=== PATIENT | female | born 1960 | race African-American/Black ===

== ENCOUNTER 2019-12-03 06:34 | Day surgery (SDC) | payer BC ==
[2019-12-02 12:01] VITALS: BMI 23.7
[2019-12-03] MEDS ORDERED: LIDOCAINE HCL/PF 2% SDV 5ML VIAL ONE (07:05)
[2019-12-03] MEDS ORDERED: SODIUM CHLORIDE 0.9% P/F 10 ML VIAL IJ ONE (07:05)
[2019-12-03] MEDS ORDERED: ceFAZolin SODIUM 1 GM VIAL ONE (07:05)
[2019-12-03] MEDS ORDERED: PROPOFOL 20 ML ONE ×2 (07:05)
[2019-12-03] MEDS ORDERED: MIDAZOLAM HCL 2 MG/2 ML SINGLE DOSE VIAL ONE ×4 (07:05→07:33)
[2019-12-03] MEDS ORDERED: DEXAMETHASONE SOD PHOSPHATE 4 MG/1 ML VIAL ONE (07:05)
[2019-12-03] MEDS ORDERED: KETOROLAC TROMETHAMINE 30 MG/1 ML VIAL ONE (07:05)
[2019-12-03] MEDS ORDERED: DESFLURANE GAS 240 ML BOTTLE IH ONE (07:11)
[2019-12-03] MEDS ORDERED: ROPIVACAINE HCL 0.5% 30ML VIAL ONE (07:31)
[2019-12-03] MEDS ORDERED: ACETAMINOPHEN 1000 MG/100 ML VIAL (NON FORMULARY) IVPB ONE (07:45)
[2019-12-03] MEDS ORDERED: ONDANSETRON 4 MG/2 ML VIAL IVPUSH PRN (07:45)
[2019-12-03] MEDS ORDERED: oxyCODONE HCL 5 MG TABLET PO PRN ×2 (07:45)
[2019-12-03] MEDS ORDERED: LACTATED RINGERS SOLUTION 1,000 ML IV SCH (07:45)
--- NOTE | 2019-12-03 07:48 | HP ---
Satellite [facility] - Chief Complaint Chief Complaint: left elbow pain - Past Medical History Allergies/Adverse Reactions: Allergies Allergy/AdvReac Type Severity Reaction Status Date / Time No Known Drug Allergies Allergy Verified 12/02/19 12:08 - Current Medications Current Medications: Home Medications Medication Instructions Recorded Loratadine [Claritin] 10 mg PO DAILY 12/02/19 Satellite Physical Exam - Physical Examination Vital Signs: Vital Signs Period Temp Pulse Resp BP Sys/Fox Pulse Ox Last 24 Hr 97.9 F 74 16 100/70 99-99 General Appearance: Well Nourished, Well Developed, Alert & Oriented x3 ENT: Clear Lung: Normal air movement Extremities: Other (left elbow- + ttp lat epi, incr pain with wrist ext, nvi) Neurological: Intact, Alert, Oriented Satellite Impression/Plan - Impression/Plan Impression: left elbow lateral epicondylitis, ecrb tear Operative Procedure: left elbow lat epicondylectomy, ECRB repair Date to be Performed: 12/03/19
[2019-12-03] MEDS ORDERED: ceFAZolin 2 GRAM PREMIX BAG IVPB ONE (08:12)
--- NOTE | 2019-12-03 09:24 | OP ---
Operative Note - Note: Operative Date: 12/03/19 Pre-Operative Diagnosis: left elbow lateral epicondylitis Operation: left elbow lateral epicondylectomy, repair of ECBR tendon Post-Operative Diagnosis: Same as Pre-op Surgeon: Saroj Chang Anesthesiologist/WEDDING DESIGNER: Fatna Romero Anesthesia: General, Local Specimens Removed: lateral epicondyle inflammatory tissue Estimated Blood Loss (mls): 0 Drains, Volume Out (mls): 0 Blood Volume Replaced (mls): 0 Fluid Volume Replaced (mls): 700 Operative Report Dictated: Yes
[2019-12-03 10:46] VITALS: BP 113/85; PULSE 66; TEMP 96
--- NOTE | 2019-12-03 17:16 | SPEC ---
DATE OF OPERATION: 12/03/2019 PREOPERATIVE DIAGNOSIS: Recurrent severe left elbow lateral epicondylitis. POSTOPERATIVE DIAGNOSIS: Recurrent severe left elbow lateral epicondylitis. PROCEDURE: Left elbow lateral epicondylectomy and repair of extensor carpi radialis brevis tendon. SURGEON: Pilar Kincaid MD SOFTWARE LICENSING EXECUTIVE: None. ANESTHESIOLOGIST: Fanta Romero MD ANESTHESIA: Left interscalene block with LMA anesthesia. DRAINS: None. COMPLICATIONS: None. SPECIMEN: Inflammatory tissue, left elbow lateral epicondyle. BLOOD LOSS: None. BLOOD GIVEN: None. FLUID REPLACEMENT: 700 mL Plasmalyte. INDICATION: This patient is a 59-year-old female with a preoperative diagnosis of recurrent severe left elbow epicondylitis. PROCEDURE: The patient was brought into the operating room, peripheral IV placed, IV sedation given, a right intrascalene block performed, LMA anesthesia induced. Patient was given 1 gram of IV Ancef. A tourniquet applied to the arm. The upper extremity was prepped and draped in a sterile fashion, elevated and exsanguinated with an Esmarch bandage and tourniquet inflated to 250 mg of mercury. The entire case was done under 3.8 loupe magnification. A No. 15 scalpel blade was utilized to cut into the skin in a curvilinear fashion over the lateral epicondyle. Subcutaneous hemostasis was achieved with the bipolar cautery. Metzenbaum scissors were used to cut through the superficial fascia, exposing the lateral epicondyle, the origin of the ECRB. Under direct visualization three longitudinal slits were made within the periosteum of the lateral epicondyle as well as along the fibers of the ECRB with a No. 15 scalpel blade. First starting in the most anterior slit, using a combination of a fresh No. 15 scalpel blade and a rongeur, I was able to identify and removed chronic inflammatory degenerating tissue. This slightly grayish yellowish tissue was passed off the field with specimen, soft tissue lateral epicondyle right elbow. Next a curet was used to scrape the tendon in the area of the abnormalities as well as mildly decorticate the lateral epicondyle. The area was copiously irrigated and washed out, inspected. All abnormal tissue was seen to be removed from this area and therefore a 1.1 mm drill bit was used to drill multiple holes within the lateral epicondyle. The same sequence of events was carried out in the middle slit and the posterior most slit combining all the tissue specimen. Multiple drill holes were again drilled in the lateral epicondyle after mild decortication with a curet and rongeur. The area was copiously irrigated and washed out, additional inspection performed. I didnt see any other abnormal tissue and therefore closure was begun. A 2-0 Vicryl suture was used to close the longitudinal split in the ECRB tendon. No wan tear of the ECRB was identified. It was just a degenerative process. The area was copiously irrigated and washed out. The fascia was closed with 4-0 undyed Vicryl over the repair. The deep dermal layer was closed with 4-0 undyed Vicryl. Final skin approximation was done with subcuticular running 4-0 V-loc suture. The area was then washed and dried and covered with Steri-Strips, 4 x 4s, Webril and a posterior fiber glass splint was applied, the elbow in neutral and the wrist mobilized as well. This was wrapped in two Fish bandages. The tourniquet was taken down after a total tourniquet time of approximately 40 minutes. There were no complications during the case. The patient tolerated the procedure quite well and was brought to the ambulatory recovery room in stable condition. PILAR KINCAID M.D. [id number]
--- NOTE | 2019-12-05 17:45 | PATH ---
Surgical Pathology Report Patient Name: PRINCE CASTANO [facility]. Rec. #: [id number] /Age/Gender: 1960 (Age: 59) / F Account: [id number] Location: [facility] SURGICAL Taken: 12/03/2019 Received: 12/03/2019 Reported: 12/05/2019 Physicians: Saroj Chang M.D. Specimen(s) Received LATERAL EPICONDYLE Clinical History Left elbow epicondylitis Final Diagnosis LATERAL EPICONDYLE, EPICONDYLECTOMY: PORTIONS OF BONE, CARTILAGE, AND FIBROADIPOSE TISSUE WITH FOCAL REACTIVE CHANGE. Electronically Signed Krissy Lei M.D. Gross Description Received in formalin labeled "lateral epicondyle", are multiple boyd to yellow soft tissue together measuring 0.8 x 0.8 x 0.1cm in aggregate. The specimen is entirely submitted one cassette KWS/12/03/2019 sulloan/12/03/2019
== END 2019-12-03 10:55 | disposition home or self-care (01) ==
LOC: JASU-SURG 06:34
PROVIDERS: ATTEND Orthopaedic Surgery
PROC: 0JBF0ZZ Excision of Left Upper Arm Subcutaneous Tissue and Fascia, Open Approach (ICD-10-PCS; 2019-12-03)
PROC: 0LQ40ZZ Repair Left Upper Arm Tendon, Open Approach (ICD-10-PCS; principal; 2019-12-03 08:00)
DX: M77.12 Lateral epicondylitis, left elbow (principal)
CPT/HCPCS: 88304-TC; 88311-TC; 94760